=== PATIENT | female | born 1985 | race Hispanic/Latino ===

== ENCOUNTER 2022-05-07 22:49 | Inpatient (IN) | payer MEDICAID, OTHER, SELFPAY ==
[2022-05-07 23:26] VITALS: BMI 28.7
[2022-05-07] MEDS ORDERED: hydrALAZINE 20 MG/ML VIAL SLOW IVP PRN (23:58)
[2022-05-08 00:16] LABS: Fetal Membranes Rupture RUPTURE DETECTED (No Rupture)
[2022-05-08] MEDS ORDERED: Calcium Gluc 4.6 MEQ/10 ML (100 MG/ML) SLOW IVP PRN (00:36)
[2022-05-08] MEDS ORDERED: Promethazine HCl 25 MG/ML VIAL IM PRN (00:40)
[2022-05-08] MEDS ORDERED: Ondansetron PF 4 MG/2 ML Vial IVP PRN (00:40)
[2022-05-08] MEDS ORDERED: hydrALAZINE 20 MG/ML VIAL SLOW IVP PRN (00:40)
[2022-05-08] MEDS ORDERED: Butorphanol Tartrate 1 MG/ML VIAL SLOW IVP PRN (00:40)
[2022-05-08] MEDS ORDERED: Acetaminophen 500 MG TAB PO PRN (00:40)
[2022-05-08] MEDS ORDERED: HumaLOG 300 UNITS/3 ML VIAL SC PRN (00:45)
[2022-05-08] MEDS ORDERED: Dextrose 50% Abboject 50 ML SYRINGE SLOW IVP PRN (00:45)
[2022-05-08] MEDS ORDERED: Dextrose 5% in Water 1,000 ML IV PRN (00:45)
[2022-05-08] MEDS ORDERED: Ampicillin 2 GM VIAL ONE (00:50)
[2022-05-08] MEDS: Betamet Acet/Betamet Na Ph 30 MG/5 ML VIAL IM SCH (00:52)
[2022-05-08] MEDS: Ampicillin 2 GM in Sodium Chloride 0.9% 100 ML IVPB SCH ×4 (00:53→17:59)
[2022-05-08 00:54] LABS: Hemoglobin 14.1 g/dL (12.0-15.5); Mean Corpuscular HGB CONC 34.6 g/dL (32.0-36.0); Mean Corpuscular Hemoglobin 30.2 pg (27.0-33.0); Mean Corpuscular Volume 87.2 fl (81.6-98.3); Mean Platelet Volume 11.7 fl (7.4-10.4); Platelet Count 171 10x3/uL (150-450); RBC Distribution Width 14.1 % (11.5-14.5); Red Blood Cell (RBC) Count 4.67 10x6/uL (3.90-5.03); White Blood Cell (WBC) Count 6.3 10x3/uL (3.5-10.5)
[2022-05-08] MEDS: Magnesium Sulfate 20 gm/500 ml 20 GM/500 ML BAG IVPB SCH ×3 (00:54→21:41)
[2022-05-08] MEDS ORDERED: Azithromycin 250 MG TAB PO SCH (01:00)
[2022-05-08 01:22] LABS: Syphilis Antibody Nonreactive (Nonreactive); Syphilis Antibody Index 0.07 S/CO (<1.00 Non-Reactive)
[2022-05-08 01:24] LABS: HIV (1/2) Antibody/Antigen Non-Reactive (NonReactive); HIV 1/2 INDEX 0.07 S/CO (<1.00); Hep B Surf Ag Non-Reactive S/CO (NonReactive)
[2022-05-08 01:43] LABS: HBSAg Index 0.22 S/CO (0-0.99)
[2022-05-08 03:07] LABS: SARS-CoV-2 NAA Rapid Test Not Detected (NotDetected)
[2022-05-08] MEDS ORDERED: Bupivacaine 0.25% HCL 30 ML VIAL ONE (07:00)
[2022-05-08] MEDS: metFORMIN 500 MG TAB PO SCH ×2 (08:50→19:26)
[2022-05-08] MEDS: HumaLOG 300 UNITS/3 ML VIAL SC PRN (16:22)
[2022-05-08 17:21] LABS: Chlamydia by PCR Not Detected (NotDetected); GC by PCR Not Detected (NotDetected)
[2022-05-08] MEDS: Lactated Ringer's 1,000 ML IV SCH (17:59)
[2022-05-09] MEDS: Ampicillin 2 GM in Sodium Chloride 0.9% 100 ML IVPB SCH ×3 (00:53→23:25)
[2022-05-09] MEDS: Betamet Acet/Betamet Na Ph 30 MG/5 ML VIAL IM SCH (00:53)
[2022-05-09] MEDS ORDERED: Lidocaine 1% (PF) 30 ML VIAL SC PRN (05:56)
[2022-05-09] MEDS ORDERED: NS w/ Oxytocin 30 units 500 ML IV SCH ×3 (06:00→21:00)
[2022-05-09] MEDS: Lactated Ringer's 1,000 ML IV SCH ×2 (07:02→23:24)
[2022-05-09] MEDS: HumaLOG 300 UNITS/3 ML VIAL SC PRN (08:40)
[2022-05-09] MEDS ORDERED: Fentanyl 2 mcg/Bup 0.1% Cadd 100 ML ONE (14:25)
[2022-05-09] MEDS ORDERED: Ondansetron PF 4 MG/2 ML Vial IVP PRN ×2 (15:45→21:00)
[2022-05-09] MEDS ORDERED: Naloxone HCl 0.4 mg/ml Vial IVP PRN ×2 (15:45)
[2022-05-09] MEDS ORDERED: Acetaminophen 325 MG TAB PO PRN (15:45)
[2022-05-09] MEDS ORDERED: Moisturizing Cream (Eucerin) 113 GM JAR TOP PRN (15:45)
[2022-05-09] MEDS ORDERED: Fentanyl 2 mcg/Bupivacaine 0.1% Cassette 100 ML EPIDURAL SCH (15:45)
[2022-05-09] MEDS ORDERED: ePHEDrine Sulfate 50 MG/10 ML VIAL SLOW IVP PRN (15:45)
[2022-05-09] MEDS ORDERED: Communication Order-Pharmacy FS SCH (15:45)
[2022-05-09] MEDS ORDERED: diphenhydrAMINE 50 MG/ML VIAL IVP PRN (15:45)
[2022-05-09] MEDS ORDERED: Promethazine HCl 25 MG/ML VIAL IM PRN ×2 (15:45→21:00)
[2022-05-09] MEDS ORDERED: Lactated Ringer's 500 ML IV PRN (15:45)
[2022-05-09] MEDS ORDERED: Boostrix 0.5 ML (Tdap) VIAL IM ONE (21:00)
[2022-05-09] MEDS ORDERED: Milk Of Magnesia 30 ML UDCUP PO PRN (21:00)
[2022-05-09] MEDS ORDERED: Bisacodyl 10 MG SUPP PR PRN (21:00)
[2022-05-09] MEDS ORDERED: Methylergonovine 0.2 MG/ML VIAL IM PRN (21:00)
[2022-05-09] MEDS ORDERED: hydrALAZINE 20 MG/ML VIAL SLOW IVP PRN (21:00)
[2022-05-09] MEDS ORDERED: Misoprostol 200 MCG TAB VAG PRN (21:00)
[2022-05-09] MEDS: Docusate 100 MG CAP PO SCH (22:04)
[2022-05-09] MEDS: Ibuprofen 800 MG TAB PO SCH (22:04)
[2022-05-09] MEDS: metFORMIN 500 MG TAB PO SCH (23:25)
[2022-05-10] MEDS: Ibuprofen 800 MG TAB PO SCH ×3 (05:33→22:08)
[2022-05-10] MEDS: Ferrous Sulfate 325 MG TAB PO SCH (07:17)
[2022-05-10] MEDS: Docusate 100 MG CAP PO SCH ×2 (07:36→22:08)
[2022-05-10] MEDS: Prenatal Vitamin 1 TAB PO SCH (07:36)
[2022-05-11] MEDS: Ibuprofen 800 MG TAB PO SCH (05:55)
[2022-05-11 07:19] VITALS: BP 127/78; TEMP 97.9
[2022-05-11] MEDS: Ferrous Sulfate 325 MG TAB PO SCH (08:13)
[2022-05-11] MEDS: Prenatal Vitamin 1 TAB PO SCH (08:15)
[2022-05-11] MEDS: Docusate 100 MG CAP PO SCH (08:15)
== END 2022-05-11 13:05 | disposition home or self-care (01) | DRG 805 ==
LOC: CSHLD/OP 22:49 → CSHLD 05-08 00:33 → CSHPP 05-09 21:20
PROVIDERS: ADMIT Obstetrics & Gynecology; ATTEND Obstetrics & Gynecology
PROC: 0UQMXZZ Repair Vulva, External Approach (ICD-10-PCS; principal; 2022-05-09)
PROC: 10E0XZZ Delivery of Products of Conception, External Approach (ICD-10-PCS; 2022-05-09)
PROC: 10H07YZ Insertion of Other Device into Products of Conception, Via Natural or Artificial Opening (ICD-10-PCS; 2022-05-09)
DX: O42.013 Preterm premature rupture of membranes, onset of labor within 24 hours of rupture, third trimester (principal); O60.14X0 Preterm labor third trimester with preterm delivery third trimester, not applicable or unspecified; Z37.0 Single live birth; O24.425 Gestational diabetes mellitus in childbirth, controlled by oral hypoglycemic drugs; O71.82 Other specified trauma to perineum and vulva; O76 Abnormality in fetal heart rate and rhythm complicating labor and delivery; Z20.822 Contact with and (suspected) exposure to COVID-19; Z79.82 Long term (current) use of aspirin; Z79.84 Long term (current) use of oral hypoglycemic drugs; Z3A.34 34 weeks gestation of pregnancy; O34.211 Maternal care for low transverse scar from previous cesarean delivery
CPT/HCPCS: 36416; 51702; 84112; 85027; 86780; 86850; 86900; 86901; 87081; 87340; 87389; 87480; 87491; 87510; 87591; 87660; 99285; J0290; J0702; J1815; J2590; J3475; J3490; J7120; S0020; U0002